=== PATIENT | female | born 1960 | race Caucasian/White ===

== ENCOUNTER 2016-02-23 08:46 | Emergency (ER) | payer BC ==
[~2016-02-23] VITALS: Ht 152.4 cm; Wt 63.6 kg
[~2016-02-23 08:46] MED LIST: ALDACTONE50 MG PO; AMLODIPINE BESY10 MG PO; ATORVASTATIN CA20 MG PO; BIOTIN PO; BIOTIN1000 MICRO PO; CYCLOBENZAPRINE10 MG PO; FOSAMAX70 MG PO; HYDROCODON-ACE1 EAC7 PO; LIPITOR20 MG PO; LISINOPRIL10 MG PO; LOPRESSOR50 MG PO; MAGNESIUM250 M1 PO; MAGNESIUM250 MG PO; METOPROLOL TAR100 MG PO; METOPROLOL TART50 MG PO; MOTRIN800 MG PO; NORCO 5/3251 TABLET PO; NORVASC10 MG PO; SPIRONOLACTONE50 MG PO; TRAMADOL HCL50 MG PO; ULTRAM50 MG PO; VICODIN 5-3001 EACH PO; VITAMIN D400 UNIT PO
[2016-02-23] MEDS ORDERED: PERCOCET 5/31 TABLET PO (10:14)
[2016-02-23] MEDS ORDERED: NAPROXEN500 MG PO (10:14)
[2016-02-23 10:28] VITALS: BP 128/78
== END 2016-02-23 10:38 | disposition home or self-care (01) ==
LOC: EME 08:46
DX: S50.312A Abrasion of left elbow, initial encounter (principal); S22.32XA Fracture of one rib, left side, initial encounter for closed fracture; W00.0XXA Fall on same level due to ice and snow, initial encounter; Z91.048 Other nonmedicinal substance allergy status; Z91.040 Latex allergy status; F17.200 Nicotine dependence, unspecified, uncomplicated; I10 Essential (primary) hypertension; E78.5 Hyperlipidemia, unspecified
CPT/HCPCS: 71100; 99281; 99283; J1885

== ENCOUNTER → 2017-04-16 | Outpatient (CLI) | payer BC ==
[~2017-04-16] MED LIST changes: +NAPROXEN500 MG PO; +PERCOCET 5/31 TABLET PO
== END | disposition home or self-care (01) ==
LOC: CDC 11:37
DX: Z01.810 Encounter for preprocedural cardiovascular examination (principal); R00.0 Tachycardia, unspecified; I45.10 Unspecified right bundle-branch block; I44.5 Left posterior fascicular block
CPT/HCPCS: 93000